=== PATIENT | female | born 1960 | race Caucasian/White ===

== ENCOUNTER 2018-12-12 06:36 | Day surgery (SDC) | payer BC, SELFPAY ==
--- NOTE | 2018-12-11 11:55 | W.PIPPEYE ---
History of Present Illness Chief Complaint: Progressive decreased vision, left eye Narrative: The patient is a 58-year-old lady with history of progressive decreased vision in her left eye. It has declined significantly over the last year. She notes fuzzy foggy and cloudy vision, left eye worse than right. She was noted to have a moderate nuclear and posterior subcapsular cataract in the left eye with significant cortical cataract in the left eye with visual acuity of 20/40 and significant glare disability. The option of cataract surgery was offered to the patient and she felt she was symptomatic enough that she wished to proceed. NOTE: The Chief Complaint, HPI, Past Medical History, Past Surgical History, Family History, Social History, Medications, and complete Ophthalmic Exam with detailed Assessment and Plan have already been documented in the patient's outpatient ophthalmic record and are not covered again in detail here. PFSH Medical History Cortical cataract of left eye (Acute) Nuclear sclerotic cataract of left eye (Acute) Posterior subcapsular age-related cataract of left eye (Acute) BMI 37.0-37.9, adult Depression Endometrial cancer, grade I Hypertension Surgical History section Hysterectomy, Laproscopic (02/20/15) Oophrectomy, Right (~2011) Family History Mother Colon cancer Valvular heart disease Hyperlipidemia Father Diabetes Essential hypertension Sister Guillain-Chicken syndrome Diabetes Maternal Aunt Colon cancer Social History Smoking and Tabacco status: Never Meds Home Medications Medication Instructions Recorded Confirmed Type citalopram 10 mg PO DAILY tab-cap 12/28/15 12/09/18 History echinacea [Echinacea Herb] 760 mg PO DAILY 12/28/15 12/09/18 History multivitamin [Daily Value] 1 ea PO DAILY 12/28/15 12/09/18 History chlorthalidone 25 mg PO DAILY tab-cap 02/27/18 12/09/18 History betamethasone valerate 1 applic TOPICAL BID 12/09/18 12/09/18 History ibuprofen 600 mg PO QID PRN 12/09/18 12/09/18 History naproxen sodium [Aleve] 220 mg PO DAILY PRN 12/09/18 12/09/18 History Allergies Allergy/AdvReac Type Severity Reaction Status Date / Time amoxicillin Allergy RASH Unverified 02/27/18 10:44 sertraline [From Zoloft] AdvReac Mild Verified 12/09/18 13:37 Exam OCULAR EXAM:: Most recent ocular examination is significant for corrected visual acuity of 2024 OD, 20/40 OS. Intraocular pressure is 14 OD, 13 OS. Extraocular motility is normal. Pupils equal, round, and reactive without afferent pupillary defect slit-lamp examination is significant for 1+ nuclear/cortical cataract OD. In the left eye there is a 1+ nuclear and posterior subcapsular cataract with 2-3+ cortical cataract. Funduscopic examination reveals disc cupping of 0.2 OU with normal vessels, macula, peripheral retina and vitreous. BRIGHTNESS ACUITY TESTING (BAT):: Brightness acuity testing of the left eye off is 20/40. Low is 20/50. Medium is 20/60. High is 20/100. Assessment and Plan (1) Posterior subcapsular age-related cataract of left eye: Current visit: No Status: Acute Assessment: Visually significant cataract, left eye. Plan: Cataract extraction with intraocular lens implantation, left eye (2) Nuclear sclerotic cataract of left eye: Current visit: No Status: Acute Assessment: Visually significant cataract, left eye. Plan: Cataract extraction with intraocular lens implantation, left eye (3) Cortical cataract of left eye: Current visit: No Status: Acute Assessment: Visually significant cataract, left eye. Plan: Cataract extraction with intraocular lens implantation, left eye Note: NOTE:: The details of the planned surgery, including the risks, indications,limitations,expectations,outcome and possible complications were explained to the patient. The patient understands the complications including, but not limited to: infection, hemorrhage, posterior dislocation of the lens or nuclear fragments which may require the intervention of a vitreoretinal surgeon, possible loss of the eye, or from anesthetic complications. The patient has been made aware of the option of not having surgery, that vision following surgery may not be equal to that prior to surgery, and that the planned surgery may not achieve the intended results. Following this discussion, which the patient appeared to understand, the patient wishes to proceed with cataract surgery with lens implantation of the affected eye to improve and maximize vision.
--- NOTE | 2018-12-11 12:18 | W.PM.DSUDISC ---
Discharge Plan Discharge Details Attending Provider: Richard Singleton Primary Care Provider: Bib Suresh Home Meds and New Rx's Prescriptions: No Action multivitamin [Daily Value] 1 EACH tablet 1 ea PO DAILY RF: 0 echinacea [Echinacea Herb] 380 MG capsule 760 mg PO DAILY RF: 0 citalopram 20 MG tablet 10 mg PO DAILY RF: 0 chlorthalidone 25 MG tablet 25 mg PO DAILY RF: 0 ibuprofen 600 mg Tablet 600 mg PO QID PRNRF: 0 betamethasone valerate 0.12 % Foam 1 applic TOPICAL BID RF: 0 naproxen sodium [Aleve] 220 mg Capsule 220 mg PO DAILY PRNRF: 0 Discharge Instructions Stand Alone Forms: Post-op Topical Cataract, Abdi Sheehan (DSU) DS: Diagnosis Discharge Diagnosis (1) Status post cataract extraction and insertion of intraocular lens of left eye: Status: Chronic
--- NOTE | 2018-12-11 12:19 | W.PM.OP ---
Date of service: 12/12/18 Time of Service: 09:03 Operative Note PRE-OP DIAGNOSIS: Cataract, left eye, with poor red reflex POST-OP DIAGNOSIS: same PROCEDURE: Cataract extraction using phacoemulsification with intraocular lens implant, left eye, using capsular staining with Vision Blue SURGEON: Richard Singleton ANESTHESIA: MAC (with local sub-tenon's anesthetic injection) COMPLICATIONS: None Patient was transported to: same day Patient's condition: stable Implants: Manish and Manish / [employer] Tecnis [id number] Indications: Progressive decreased vision due to cataract, left eye, with poor red reflex Procedure Description: CATARACT SURGERY OPERATIVE REPORT PREOPERATIVE DIAGNOSIS: 1. Nuclear/cortical/posterior subcapsular cataract, left eye 2. Poor red reflex secondary to #1 POSTOPERATIVE DIAGNOSIS: Same OPERATION: 1. Cataract extraction using phacoemulsification with posterior chamber intraocular lens implant, left eye. 2. Capsular staining with Vision Blue IOL: IOL Juice Bar Team Member/Model: Manish & Manish / YOUNG Tecnis [id number] IOL Power: + 18.0 diopters IOL Serial Number: [id number] Optic Diameter: 6.0 mm Haptic/Overall Diameter: 13.0 mm PHACO INFO: Brooks Busbudurion Vision System with OZil and Active Fluidics Cumulative Dispersed Energy (CDE): 6.12 seconds SURGEON: Richard Singleton MD, YESI ANESTHESIA: Monitored A [facility] Care (MAC), with local sub-tenon's anesthetic infiltration COMPLICATIONS: None SPECIMENS: None INDICATIONS FOR PROCEDURE: The patient is a 58-year-old lady with history of progressive decreased vision in her left eye over the past year. She is noted to have a significant nuclear cortical and posterior subcapsular cataract. The option of cataract surgery was offered to the patient and she felt she was symptomatic enough that she wished to proceed. PROCEDURE: The correct surgical eye was identified and marked as the left eye and the pupil was dilated in the preoperative area using mydriatics and cycloplegics. The dilated pupil size was 7.5 mm. Oral sedation was administered in the form of an Imprimis MKO Melt (midazolam 3mg/ketamine 25mg/ondansetron 2mg). The patient was brought to the operating room where cardiopulmonary monitoring was instituted and surgical time-out was performed, confirming the correct operative eye and IOL power. Topical anesthesia was administered and ophthalmic povidone-iodine 5% was instilled into the conjunctival fornices. Lidocaine gel was applied to the cornea and the evelin-ocular area was prepped with Betadine 10% solution and draped in the usual sterile fashion for intraocular surgery, including an aperture drape. A Tegaderm transparent film dressing was cut in half and used to cover the lashes and lid margins. Care was taken to sequester the lashes and lid margins under the Tegaderm dressing. A lid speculum was placed between the lids of the operative eye and the Jeevan-Criss operating microscope was maneuvered into position. Leroy scissors were then used to make a conjunctival buttonhole approximately 6mm posterior to the limbus in the inferonasal quadrant. Blunt dissection was carried out to expose bare sclera, and a blunt-tipped sub-tenon?s anesthesia cannula was introduced and passed posteriorly along the globe where non-preserved plain lidocaine was injected into posterior sub-Tenon?s space. A sideport knife was used to make a paracentesis port at the 12:00 position. Air was injected into the anterior chamber, followed by Vision Blue, which was painted over the anterior capsule and then irrigated out using BSS. The anterior chamber was filled with Healon GV. A 2.4mm keratome knife was used to create a half-thickness groove at the limbus and then to construct a three-plane near-clear corneal tunnel extending 2.0mm into clear cornea at the 3:00 position. A flap was raised on the anterior capsule and capsulorhexis forceps were used to complete a continuous curvilinear capsulorhexis of 5.5 mm. Balanced salt solution was then used to perform cortical cleaving hydrodissection and nuclear hydrodelineation until the lens could be freely rotated within the capsular bag. The lens nucleus was then disassembled and removed within the capsular bag and iris plane using phacoemulsification. Residual cortical material was removed using the 45-degree angled silicone I/A tip with 0.3mm port. The posterior capsule was carefully polished to remove as much residual lens epithelial cells as safely possible. The capsular bag was then inflated and the anterior chamber deepened with viscoelastic. The lens implant described above was inserted into the capsular bag using the YOUNG [place] Injector. A Kuglen hook was used to dial the IOL into position. Residual viscoelastic was then removed first from posterior to the IOL, then from the anterior chamber using the I/A handpiece. A bimanual I/A technique was used using the Brooks Anctuer handpiece. The underside of the anterior capsule was vacuumed and polished for 360 degrees. The lens implant was noted to center nicely within the capsular bag. The incisions were stromally hydrated, and the anterior chamber was reformed using BSS. Then 0.4cc of moxifloxacin 1.5mg/ml were injected into the capsular bag and anterior chamber. The incisions were checked with a Weck spear and found to be secure. Several drops of ophthalmic povidone-iodine 5% were then applied to the eye followed by two drops of Imprimis combination moxifloxacin/dexamethasone solution. The drapes were removed and a clear plastic protective eye shield was placed over the eye. The patient was then returned to Same Day Surgery in stable condition.
[2018-12-12 07:08] VITALS: BP 134/76; PULSE 69; RESP 15; TEMP 36.9; O2SAT 96
[2018-12-12] MEDS: Tetracaine 0.5% 4 ML BTL OS ×4 (07:14→08:22)
[2018-12-12] MEDS: Tropicam./Phenyleph. (1/2.5%) 5 ML BTL OS ×3 (07:14→07:24)
[2018-12-12] MEDS: Lidocaine 2% Jelly 6 ML SYR (08:22)
[2018-12-12] MEDS: Povidone-Iodine Ophth 30 ML BTL (08:22)
[2018-12-12] MEDS: Lidocaine 1% Pres-Free 5 ML VIAL (08:28)
[2018-12-12] MEDS: Balanced Salt Soln.-PLUS 500 ML BAG (08:28)
[2018-12-12] MEDS: Trypan Blue 0.06% 0.5 ML SYR (08:30)
[2018-12-12 09:25] VITALS: BP 112/59; PULSE 64; RESP 16; TEMP 36.8; O2SAT 93
== END 2018-12-12 09:50 | disposition home or self-care (01) ==
PROVIDERS: PCP Internal Medicine; Visit Provider Ophthalmology
PROC: (CPT 66982; principal; 2018-12-12 08:30)
DX: H25.812 Combined forms of age-related cataract, left eye (principal); H35.89 Other specified retinal disorders; I10 Essential (primary) hypertension
CPT/HCPCS: 66982; V2632

== ENCOUNTER 2019-02-09 14:19 | Outpatient (REF) | payer BC, SELFPAY ==
[2019-02-09 20:50] LABS: Abs Immature Grans 0.01 k/cumm (0.0-0.09); Absolute Basophil Count 0.03 k/cumm (0.0-0.2); Absolute Lymphocyte Count 1.68 k/cumm (1.2-3.4); Absolute Monocyte Count 0.37 k/cumm (0.11-0.7); Absolute Neutrophil Count 4.27 k/cumm (1.2-6.7); Basophils % 0.5; Eosinophils % 1.5; HCT 41.4 % (36.0-46.0); HGB 13.9 g/dL (12.0-15.5); Immature Grans % 0.2; Mean Corp. HGB Concentration 33.6 g/dL (32.0-36.0); Mean Corpuscular Hemoglobin 31.7 pg (27.0-33.0); Mean Corpuscular Volume 94.3 fL (80-95); Mean Platelet Volume 11.1 fL (8.0-11.0); Monocytes % 5.7; Neutrophils % 66.1; Platelet Count 238 x1000/uL (130-400); RBC 4.39 m/cumm (4.00-5.20); RBC Distribution Width 12.3 % (11.7-14.6); White Blood Cell Count 6.46 k/cumm (4.4-10.8)
[2019-02-09 21:41] LABS: ALT 31 U/L (12-78); AST 19 U/L (15-37); Albumin 3.9 g/dL (3.4-5.0); Alkaline Phosphatase 103 U/L (46-116); Anion Gap 9.1 mmol/L (3-11); BUN 22 mg/dL (7-18); Bilirubin, Total 0.6 mg/dL (0.2-1.0); CO2 30.9 mmol/L (21.0-32.0); CREATININE 0.94 mg/dL (0.55-1.02); Calcium 9.5 mg/dL (8.5-10.1); Chloride 99 mmol/L (98-107); Glucose 211 mg/dL (70-100); Potassium 3.4 mmol/L (3.5-5.1); Sodium 139 mmol/L (136-145); Total Protein 7.7 g/dL (6.4-8.2)
== END 2019-02-09 14:39 ==
LOC: NCHCN 14:19
PROVIDERS: PCP Internal Medicine; Visit Provider Internal Medicine
DX: R10.32 Left lower quadrant pain (principal)
CPT/HCPCS: 80053; 85025

== ENCOUNTER 2019-03-17 00:16 | Outpatient (CLI) | payer BC, SELFPAY ==
--- NOTE | 2019-03-17 11:53 | DI.MAMMO_ITS ---
SYMPTOMS/DIAGNOSIS: SCREENING, Z12.31 MAMMOGRAM: Mammograms were interpreted according to the usual protocol including computer analysis with CAD system, tomosynthesis and C view imaging. Comparison is made with exams from 2012 through 2018. The breasts are composed of scattered fibroglandular densities. There are no suspicious masses or suspicious microcalcifications. There has been no significant change. IMPRESSION: Category I, negative mammogram. Yearly screening mammography is recommended. Breast density B. MQSA ASSESSMENT OF FINDINGS: Negative. Category 1. Patient will receive a letter notifying them of these results. BI-RADS category B. There are scattered areas of fibroglandular density.
== END 2019-03-17 00:36 ==
PROVIDERS: PCP Internal Medicine; Visit Provider Nurse Practitioner Family
DX: Z12.31 Encounter for screening mammogram for malignant neoplasm of breast (principal)
CPT/HCPCS: 77063; 77067

== ENCOUNTER 2019-03-17 10:09 | Outpatient (REF) | payer BC, SELFPAY ==
[2019-03-19 09:48] LABS: Hepatitis C Ab w Rflx HCV PCR Negative (NEGAT)
== END 2019-03-17 10:29 ==
LOC: NCHCN 10:09
PROVIDERS: PCP Internal Medicine; Visit Provider Specialist/Technologist Athletic Trainer
DX: Z11.59 Encounter for screening for other viral diseases (principal)
CPT/HCPCS: 86803

== ENCOUNTER 2019-06-03 16:09 | Outpatient (REF) | payer BC, SELFPAY | END 2019-06-03 16:29 | LOC: NCHCN 16:09 | PROVIDERS: PCP Internal Medicine; Visit Provider Internal Medicine | DX: E87.6 Hypokalemia (principal) | CPT/HCPCS: 84132 ==

== ENCOUNTER 2019-06-22 11:46 | Outpatient (REF) | payer BC, SELFPAY ==
[2019-06-22 16:24] LABS: Hemoglobin A1C 6.1 % (4.5-6.2)
== END 2019-06-22 12:06 ==
LOC: NCHCN 11:46
PROVIDERS: PCP Internal Medicine; Visit Provider Internal Medicine
DX: R73.01 Impaired fasting glucose (principal)
CPT/HCPCS: 83036

== ENCOUNTER 2020-04-25 00:47 | Outpatient (CLI) | payer BC, SELFPAY ==
--- NOTE | 2020-04-25 | DI.MAMMO_ITS ---
EXAM: MG MAMMO SCREENING CLINICAL HISTORY: SCREENING Z12.39 TECHNIQUE: Bilateral full field digital CC and MLO mammographic images were obtained with 3D tomosyn thesis and utilizing computer aided detection (CAD). COMPARISON: Available for comparison. FINDINGS: Masses/Architectural Distortion: None seen. Microcalcifications: No suspicious pleomorphic-type are seen. Skin Thickening/Nipple Retraction: None. IMPRESSION: 1. No significant interval change with no specific features of malignancy noted. 2. Unless there is more urgent need, screening mammography is recommended, as per [place] [employer] guidelines. BI-RADS Category 1 - Negative Breast Density - Category B - Scattered areas of fibroglandular density A negative radiographic report should not delay biopsy if a dominant or clinically suspicious mass is present. Up to ten percent of cancers are not identified on mammography. A negative report may reinforce clinical impression. Adenosis and dense breasts may obscure an underlying neoplasm. False positive reports average 6 to 10%. Patient will receive a letter notifying them of these results.
== END 2020-04-25 01:07 ==
PROVIDERS: PCP Internal Medicine; Visit Provider Internal Medicine
DX: Z12.31 Encounter for screening mammogram for malignant neoplasm of breast (principal)
CPT/HCPCS: 77063; 77067

== ENCOUNTER 2020-07-19 14:56 | Outpatient (REF) | payer BC, SELFPAY ==
[2020-07-19 21:52] LABS: Hemoglobin A1C 6.4 % (<5.7)
== END 2020-07-19 15:16 ==
LOC: NCHCN 14:56
PROVIDERS: PCP Internal Medicine; Visit Provider Internal Medicine
DX: R73.03 Prediabetes (principal)
CPT/HCPCS: 83036

== ENCOUNTER 2020-08-03 18:35 | Outpatient (REF) | payer BC, SELFPAY ==
[2020-08-06 19:19] LABS: Patient Race White; SARS-CoV-2 RNA Undetected (Undetected); SARS-CoV-2 Specimen Source Nasal
== END 2020-08-03 18:55 ==
LOC: NCHCN 18:35
PROVIDERS: PCP Internal Medicine; Visit Provider Nurse Practitioner Family
DX: R06.02 Shortness of breath (principal)
CPT/HCPCS: U0003

== ENCOUNTER 2020-08-16 01:27 | Outpatient (CLI) | payer BC, SELFPAY ==
[2020-08-16 15:30] LABS: ALT 23 U/L (14-59); AST 17 U/L (15-37); Albumin 3.6 g/dL (3.4-5.0); Alkaline Phosphatase 98 U/L (46-116); Anion Gap 10.1 mmol/L (3-11); BUN 29 mg/dL (7-18); Bilirubin, Total 0.5 mg/dL (0.2-1.0); CO2 28.9 mmol/L (21.0-32.0); Calcium 9.6 mg/dL (8.5-10.1); Chloride 100 mmol/L (98-107); Glucose 110 mg/dL (74-106); Potassium 3.9 mmol/L (3.5-5.1); Sodium 139 mmol/L (136-145); Total Protein 7.5 g/dL (6.4-8.2)
== END 2020-08-16 01:47 ==
PROVIDERS: PCP Internal Medicine; Visit Provider Internal Medicine
DX: M19.90 Unspecified osteoarthritis, unspecified site (principal)
CPT/HCPCS: 36415; 80053

== ENCOUNTER 2020-09-16 01:13 | Outpatient (CLI) | payer BC, SELFPAY ==
[2020-09-16 17:27] LABS: ALT 23 U/L (14-59); AST 17 U/L (15-37); Albumin 3.8 g/dL (3.4-5.0); Alkaline Phosphatase 99 U/L (46-116); Anion Gap 8.7 mmol/L (3-11); BUN 28 mg/dL (7-18); Bilirubin, Total 0.4 mg/dL (0.2-1.0); CO2 32.3 mmol/L (21.0-32.0); CREATININE 0.98 mg/dL (0.55-1.02); Calcium 9.4 mg/dL (8.5-10.1); Chloride 99 mmol/L (98-107); Estimated GFR 58.09 (mL/min/1.73m2); Glucose 100 mg/dL (74-106); Potassium 4.1 mmol/L (3.5-5.1); Sodium 140 mmol/L (136-145); Total Protein 7.8 g/dL (6.4-8.2)
== END 2020-09-16 01:33 ==
PROVIDERS: PCP Internal Medicine; Visit Provider Internal Medicine
DX: M19.09 Primary osteoarthritis, other specified site (principal)
CPT/HCPCS: 36415; 80053

== ENCOUNTER 2021-06-28 12:56 | Outpatient (CLI) | payer BC, SELFPAY ==
--- NOTE | 2021-06-28 | DI.RAD_ITS ---
Exam(s) XR KNEE RT 3V AP,LAT,GLENNA EXAM: XR KNEE RT 3V AP,LAT,GLENNA CLINICAL HISTORY: ACUTE RT KNEE PAIN, M25.561; INFLAMMATORY ARTHRITIS, M13.80. TECHNIQUE: 2D digital imaging was performed. COMPARISON: No exams were available for comparison FINDINGS: There is no evidence of fracture although there does appear to be a small joint effusion. No obvious degenerative changes in the medial lateral compartments. Mild degenerative changes in the patellofe moral compartment. No osseous lesions. Bone density is age-appropriate. IMPRESSION: No fractures but there is a small joint effusion. This may signify an internal derangement. DATA REPOSITORY: RADIATION DOSE DELIVERED:
== END 2021-06-28 13:16 ==
PROVIDERS: PCP Internal Medicine; Visit Provider Nurse Practitioner Family
DX: M25.561 Pain in right knee (principal); M13.80 Other specified arthritis, unspecified site; M25.461 Effusion, right knee
CPT/HCPCS: 73562

== ENCOUNTER 2021-08-01 14:49 | Outpatient (REF) | payer BC, SELFPAY ==
[2021-08-01 21:04] LABS: Calculated LDL 90 mg/dL (<100); Cholesterol 168 mg/dL (<200); HDL Cholesterol 48 mg/dL (40-60); Triglyceride 154 mg/dL (<150)
== END 2021-08-01 14:50 | disposition home or self-care (01) ==
LOC: NCHCN 14:49
PROVIDERS: PCP Internal Medicine; Visit Provider Internal Medicine
DX: E66.9 Obesity, unspecified (principal); F41.9 Anxiety disorder, unspecified; R73.03 Prediabetes; F32.9 Major depressive disorder, single episode, unspecified
CPT/HCPCS: 80061

== ENCOUNTER 2021-08-14 00:51 | Outpatient (CLI) | payer BC, SELFPAY ==
--- NOTE | 2021-08-14 07:30 | DI.MAMMO_ITS ---
Exam(s) MAMMO SCREENING EXAM: MAMMO SCREENING CLINICAL HISTORY: screening,Z12.39 TECHNIQUE: Mammograms were interpreted according to the usual protocol including computer analysis w [facility] CAD system, tomosynthesis and C-view imaging. COMPARISON: FINDINGS: Breasts are density with fairly symmetrical distribution of fibroglandular tissue. No dominant mass or clumped microcalcification is identified in either breast. The current examination is compared wi th previous examinations including April 2020 and there has been no gross interval change in appearanc e comparison with prior studies. IMPRESSION: No specific evidence of malignancy at this time. Routine screening examinations are suggested at yea rly intervals in this age group according to the ACS ACR guidelines. BI-RADS Category 1 - Negative Breast Density - Category B - Scattered areas of fibroglandular density
== END 2021-08-14 01:11 ==
PROVIDERS: PCP Internal Medicine; Visit Provider Nurse Practitioner Family
DX: Z12.31 Encounter for screening mammogram for malignant neoplasm of breast (principal)
CPT/HCPCS: 77063; 77067

== ENCOUNTER 2021-12-11 03:57 | Outpatient (CLI) | payer OTHER, SELFPAY ==
[2021-12-11 14:21] LABS: Abs Immature Grans 0.01 10^3/uL (0.0-0.06); Absolute Basophil Count 0.05 10^3/uL (0.0-0.2); Absolute Eosinophil Count 0.23 10^3/uL (0.0-0.7); Absolute Lymphocyte Count 1.51 10^3/uL (1.2-3.4); Absolute Monocyte Count 0.84 10^3/uL (0.1-0.8); Absolute Neutrophil Count 3.54 10^3/uL (1.2-6.7); Basophils % 0.8; Eosinophils % 3.7; HCT 38.6 % (36.0-46.0); HGB 12.9 g/dL (11.2-15.7); Immature Grans % 0.2; Lymphocytes % 24.4; MCH 33.4 pg (27.0-33.0); MCHC 33.4 % (32.0-36.0); MPV 9.6 fL (8.0-11.0); Monocytes % 13.6; Neutrophils % 57.3; Nucleated RBC 0 %; Platelet Count 232 10^3/uL (130-400); RBC 3.86 10^6/uL (3.93-5.22); RDW 12.8 % (11.7-14.6); WBC 6.18 10^3/uL (4.4-10.8)
[2021-12-11 15:38] LABS: ALT 46 U/L (14-59); AST 18 U/L (15-37); Albumin 3.9 g/dL (3.4-5.0); Alkaline Phosphatase 113 U/L (46-116); Anion Gap 10.1 mmol/L (3-11); BUN 22 mg/dL (7-18); Bilirubin, Total 0.8 mg/dL (0.2-1.0); CO2 29.9 mmol/L (21.0-32.0); CREATININE 0.9 mg/dL (0.55-1.02); Calcium 8.9 mg/dL (8.5-10.1); Chloride 102 mmol/L (98-107); Glucose 158 mg/dL (74-106); Potassium 3.6 mmol/L (3.5-5.1); Sodium 142 mmol/L (136-145); Total Protein 7.4 g/dL (6.4-8.2)
== END 2021-12-11 03:58 | disposition home or self-care (01) ==
LOC: LBO 03:57
PROVIDERS: Internal Medicine Rheumatology; PCP Internal Medicine; Visit Provider Internal Medicine
DX: L40.59 Other psoriatic arthropathy (principal)
CPT/HCPCS: 36415; 80053; 85025

== ENCOUNTER 2022-01-29 14:45 | Outpatient (REF) | payer OTHER, SELFPAY ==
[2022-01-29 20:49] LABS: Abs Immature Grans 0.01 10^3/uL (0.0-0.06); Absolute Basophil Count 0.07 10^3/uL (0.0-0.2); Absolute Eosinophil Count 0.17 10^3/uL (0.0-0.7); Absolute Lymphocyte Count 1.97 10^3/uL (1.2-3.4); Absolute Monocyte Count 0.99 10^3/uL (0.1-0.8); Absolute Neutrophil Count 3.86 10^3/uL (1.2-6.7); Eosinophils % 2.4; HCT 39.7 % (36.0-46.0); Immature Grans % 0.1; Lymphocytes % 27.9; MCHC 32.7 % (32.0-36.0); MCV 100.8 fL (80-95); MPV 10.6 fL (8.0-11.0); Neutrophils % 54.6; Nucleated RBC 0 %; Platelet Count 253 10^3/uL (130-400); RBC 3.94 10^6/uL (3.93-5.22); RDW 12.7 % (11.7-14.6); RDW-SD 46.3 fL; WBC 7.07 10^3/uL (4.4-10.8)
[2022-01-29 21:01] LABS: ALT 50 U/L (14-59); AST 24 U/L (15-37); Albumin 4.2 g/dL (3.4-5.0); Alkaline Phosphatase 86 U/L (46-116); Anion Gap 6.9 mmol/L (3-11); BUN 23 mg/dL (7-18); Bilirubin, Total 0.8 mg/dL (0.2-1.0); CO2 31.1 mmol/L (21.0-32.0); CREATININE 0.9 mg/dL (0.55-1.02); Calcium 9.4 mg/dL (8.5-10.1); Chloride 101 mmol/L (98-107); Glucose 82 mg/dL (74-106); Lipase 125 U/L (73-393); Potassium 4.2 mmol/L (3.5-5.1); Sodium 139 mmol/L (136-145); Total Protein 7.6 g/dL (6.4-8.2)
[2022-01-29 21:04] LABS: Hemoglobin A1C 6.5 % (<5.7)
== END 2022-01-29 14:46 | disposition home or self-care (01) ==
LOC: NCHCN 14:45
PROVIDERS: PCP Internal Medicine; Visit Provider Family Medicine
DX: R10.9 Unspecified abdominal pain (principal); Z00.00 Encounter for general adult medical examination without abnormal findings
CPT/HCPCS: 80053; 83690; 83036; 85025

== ENCOUNTER 2022-08-21 03:37 | Outpatient (CLI) | payer OTHER, SELFPAY ==
[2022-08-21 12:46] LABS: Abs Immature Grans 0.01 10^3/uL (0.0-0.06); Absolute Basophil Count 0.05 10^3/uL (0.0-0.2); Absolute Lymphocyte Count 1.77 10^3/uL (1.2-3.4); Absolute Monocyte Count 0.49 10^3/uL (0.1-0.8); Absolute Neutrophil Count 3.93 10^3/uL (1.2-6.7); Basophils % 0.8; Eosinophils % 1.6; HCT 39.2 % (36.0-46.0); HGB 13.3 g/dL (11.2-15.7); Immature Grans % 0.2; Lymphocytes % 27.9; MCH 32.8 pg (27.0-33.0); MCHC 33.9 % (32.0-36.0); MCV 97 fL (80-95); MPV 10.3 fL (8.0-11.0); Monocytes % 7.7; Neutrophils % 61.8; Platelet Count 230 10^3/uL (130-400); RBC 4.05 10^6/uL (3.93-5.22); RDW 12.3 % (11.7-14.6); RDW-SD 43.7 fL; WBC 6.35 10^3/uL (4.4-10.8)
[2022-08-21 13:28] LABS: ALT 39 U/L (14-59); AST 22 U/L (15-37); Albumin 3.8 g/dL (3.4-5.0); Alkaline Phosphatase 94 U/L (46-116); Anion Gap 5.4 mmol/L (3-11); BUN 20 mg/dL (7-18); Bilirubin, Total 0.8 mg/dL (0.2-1.0); CO2 31.6 mmol/L (21.0-32.0); CREATININE 0.9 mg/dL (0.55-1.02); Calcium 9.3 mg/dL (8.5-10.1); Chloride 103 mmol/L (98-107); Estimated GFR 72.73 (mL/min/1.73m2); Glucose 158 mg/dL (74-106); Potassium 4.2 mmol/L (3.5-5.1); Sodium 140 mmol/L (136-145); Total Protein 7.9 g/dL (6.4-8.2)
== END 2022-08-21 03:38 | disposition home or self-care (01) ==
PROVIDERS: PCP Internal Medicine; Visit Provider Physician Assistant Medical
DX: L40.50 Arthropathic psoriasis, unspecified (principal); Z79.899 Other long term (current) drug therapy
CPT/HCPCS: 36415; 80053; 85025

== ENCOUNTER 2022-11-08 07:42 | Day surgery (SDC) | payer OTHER, SELFPAY ==
--- NOTE | 2022-11-07 20:52 | W.PM.DSUDISC ---
Date of service: 11/08/22 Time of Service: 09:24 Discharge Plan Disposition Patient Disposition: Home Condition: Good Discharge Details Reason For Visit: screening colonoscopy Attending Provider: Roberto Redd Primary Care Provider: Jadiel Dick Home Meds and New Rx's Prescriptions: Continued atorvastatin 20 mg tablet 20 mg PO QHS citalopram 20 MG tablet 10 mg PO DAILY famotidine 40 mg tablet 40 mg PO DAILY Label Comments: Per PCP she has stopped taking 3-6months ago, trial methotrexate sodium 2.5 mg tablet 20 mg PO QWEEK Enbrel 50 mg/mL (1 mL) syringe 50 mg subcut QWEEK ketoconazole 2 % cream 1 applic topical DAILY folic acid 1 mg tablet 1 mg PO DAILY ibuprofen 600 mg Tablet 600 mg PO QID PRN betamethasone valerate 0.12 % Foam 1 applic TOPICAL BID naproxen sodium [Aleve] 220 mg Capsule 220 mg PO DAILY PRN Discontinued bisacodyl [Dulcolax (bisacodyl)] 5 mg tablet,delayed release (DR/EC) 5 mg PO ONCE Qty: 4 0RF Rx Instructions: Take according to provider's instructions for colonoscopy prep. polyethylene glycol 3350 17 gram/dose powder 17 g PO ONCE Qty: 238 0RF Rx Instructions: To be taken as directed by prescriber's office for colonoscopy prep. bisacodyl [Dulcolax (bisacodyl)] 5 mg tablet,delayed release (DR/EC) 5 mg PO ONCE Qty: 4 0RF Rx Instructions: Take according to provider's instructions for colonoscopy prep. polyethylene glycol 3350 17 gram/dose powder 17 g PO ONCE Qty: 238 0RF Rx Instructions: To be taken as directed by prescriber's office for colonoscopy prep. Discharge Instructions Instructions: Colorectal Polyps (GEN) Additional Instructions: 1. If tolerated, consume a soft, low fiber diet for 1-2 days. 2[address] Do not drive, drink alcohol, operate machinery, make critical decisions, or do activities that require coordination or balance for 24 hours. 3. Because air was put into your colon during the procedure, expelling air from your rectum (passing gas or farting) is normal. 4. You may not have a bowel movement for 1-3 days because of the colonoscopy prep. This is normal. 5. Go directly to the emergency room if you notice any of the following: Develop chills (warm to touch), or if you have a thermometer and your temperature is above 101 Difficulty breathing or difficultly swallowing Persistent vomiting Severe abdominal pain, other than gas cramps Severe chest pain Black, tarry stools Any bleeding ? exceeding one tablespoon 6. Call your physician if the site where your intravenous was started becomes red, swollen, painful, and warm to touch. 7. Your physician has reviewed your pre-procedure medications. Please continue to take those medications as previously ordered. You will be given specific information/education regarding any changes to your medications before leaving. Activity:: Activity as Tolerated Diet:: As Tolerated Discharge Orders Discharge Orders: Discharge Order (Routine); Ordered 11/07/22 Ordered By: Roberto Redd DS: Diagnosis Discharge Diagnosis (1) Screening for colon cancer: Status: Acute Asessment and Plan: Quality of your colonoscopy prep was excellent, and you did fantastic during the procedure. We did identify a single polyp around 40 cm from your anus. This was removed completely. I will contact you when I have the results of the pathology report.
--- NOTE | 2022-11-07 20:54 | W.COLOREPORT ---
Date of service: 11/08/22 Time of Service: 09: Colonoscopy Report Date of procedure: 11/08/22 Pre-op diagnosis general: screening colonoscopy Post-op diagnosis procedure note: other (Colon polyp) Procedure: Colonoscopy with polypectomy Surgeon: Roberto Redd Anesthesia Type: General:No Airway Estimated blood loss (mL): 10 Pathology: other (Colon polyp at 40 cm) Complications: None Disposition: same day Indications: Sara is a 62 year old woman with a firt degree reative with colon cancer who is here for her next screening colonoscopy as part of routine health maintenance Prep: Miralax/Dulcolax Procedure Start Time: 09:04 Procedure End Time: 09:19 Retraction Time: 12 Findings: Single colon polyp around 40 cm from anus Procedure Description: After the induction of monitored anesthetic care, and with the patient in left lateral decubitus position, I began by performing an external anorectal exam.? Perineum and skin were normal, as was the anal verge.? There was no evidence of external hemorrhoids.? Next, I performed a digital rectal exam.? I did not appreciate any abnormal findings.? Next, I advanced a colonoscope into the rectal vault.? I performed retroflexion.? This was normal.? Using insufflation, I then advanced the colonoscope beyond the rectal folds and into the sigmoid colon before advancing towards the cecum.? The quality of the prep was excellent.? The scope was noted to be in the cecum by identification of the ileocecal valve and appendiceal orifice.? I then began withdrawing the colonoscope using repeated irrigation as necessary for full evaluation of the colonic mucosa. Around 40 cm from the anal verge I identified a 0.25 centimeters polyp. ?It appeared sessile in character. ?I was able to remove this with a cold forcep polypectomy. ?I examined the site, and there was minimal bleeding. ?Once this was completed, I continued to withdraw the scope and examine the remainder of the colonic mucosa.?Once the scope was withdrawn to the level of the rectum, great care was taken to examine portions of the rectal folds.? Finally, the scope was withdrawn and the patient was brought to the same-day surgery recovery unit as the anesthetic wore off. ?The findings and instructions were shared with the patient prior to discharge.
[2022-11-08 08:10] VITALS: BP 141/77; PULSE 88; RESP 16; TEMP 36.2; O2SAT 95
[2022-11-08] MEDS: Lactated Ringers 1,000 ML 80 ML IV (08:25)
--- NOTE | 2022-11-08 08:30 | ANES.PREOP_ITS ---
General Info Date of Service Date Performed: 11/08/22 Height: 5 ft 7 in Weight: 104.043 kg Body Mass Index (BMI): 35.9 Surgical Procedure: Operation Date: 11/08/22 09:05 Proposed Procedure Side Surgeon wander Redd MD Meds Allergies and Home Medications Allergies Allergy/AdvReac Type Severity Reaction Status Date / Time amoxicillin Allergy RASH Verified 11/08/22 08:08 sertraline [From Zoloft] AdvReac Mild Verified 11/08/22 08:08 Home Medication Medication Instructions Recorded citalopram 20 mg tablet 10 mg PO DAILY 12/28/15 betamethasone valerate 0.12 % 1 applic topical BID 12/09/18 topical foam ibuprofen 600 mg tablet 600 mg PO QID PRN 12/09/18 naproxen sodium 220 mg capsule 220 mg PO DAILY PRN 12/09/18 (Aleve) atorvastatin 20 mg tablet 20 mg PO QHS 06/27/21 etanercept 50 mg/mL (1 mL) 50 mg subcut QWEEK 06/21/22 subcutaneous syringe (Enbrel) famotidine 40 mg tablet 40 mg PO DAILY 06/21/22 folic acid 1 mg tablet 1 mg PO DAILY 06/21/22 ketoconazole 2 % topical cream 1 applic topical DAILY 06/21/22 methotrexate sodium 2.5 mg tablet 20 mg PO QWEEK 06/21/22 Current Visit Medications: Current Medications Generic Name Dose Route Start Last Admin Trade Name Freq PRN Reason Stop Dose Admin Hyoscyamine Sulfate 0.125 mg 11/07/22 20:56 Hyoscyamine 0.125 Mg Sl/Oral/Chew SL DIRECTED PRN Ringer's Solution 1,000 mls @ 80 mls/hr 11/08/22 06:00 IV 12/07/22 23:59 [facility]ION [facility] IV Miscellaneous Supplies 1 each 11/08/22 06:00 Iv Access IV 12/07/22 23:59 DIRECTED WALKER Ondansetron HCl 4 mg 11/07/22 20:56 Ondansetron 4 Mg/2 Ml Vial IVP Q4H PRN PRN Nausea / Vomiting Sodium Chloride 0 ml 11/08/22 06:00 Normal Saline Flush 10 Ml Syr IV 12/07/22 23:59 PRN PRN Sodium Chloride 0 ml 11/08/22 06:00 Normal Saline 10 Ml Vial IJ 12/07/22 23:59 DIRECTED PRN Sterile Water 0 ml 11/08/22 06:00 Water,Injection,Sterile 10 Ml Vial IJ 12/07/22 23:59 DIRECTED PRN PFSH Active Problems Active Problems: Problem Status Onset Code Status post cataract extraction and insertion of intraocular lens of left eye 12/12/18 Z98.42, Z96.1 Hypertension 10/04/14 I10 Family history of colon cancer 02/27/18 Z80.0 Endometrial cancer 12/30/14 C54.1 Depression 10/04/14 F32.9 Abdominal pain R10.9 Prediabetes R73.03 Screening for colon cancer Z12.11 Medical History Medical History BMI 37.0-37.9, adult Cortical cataract of left eye Inflammatory arthritis Nuclear sclerotic cataract of left eye Posterior subcapsular age-related cataract of left eye Surgical History Surgical History section History of carpal tunnel surgery of right wrist Hysterectomy, Laproscopic (02/20/15) RATLH/BSO/PLND for Stage 1A Grade1 Endometrial CA Oophrectomy, Right (~2011) with para-tubal cystectomy Dr Rodarte Tobacco Smoking/Tobacco Use Status: Never Alcohol Alcohol Intake: current Alcohol intake frequency: a few times a month Alcohol type: beer Substance Use Substance use: Never Substance use type: does not use Prental History History 3 Para 2 Hx # Term Pregnancies Multiple births Hx # Pregnancies Ectopic pregnancies AB induced Hx Number of Living Children AB spontaneous Vital Signs and Lab Results Vital Signs Most Recent Vital Signs in EMR: Most Recent Vital Signs Temp Pulse Resp BP Pulse Ox 36.2 C L 88 16 141/77 H 95 11/08/22 08:10 11/08/22 08:10 11/08/22 08:10 11/08/22 08:10 11/08/22 08:10 Lab Results Blood Type / Crossmatch: No Data to Display Complete Blood Count: No Data to Display Complete Metabolic Panel: No Data to Display Liver Function Panel: No Data to Display Coagulation Panel: No Data to Display Cardiac Panel: No Data to Display Arterial Blood Gas: No Data to Display Venous Blood Gas: No Data to Display Pancreas Panel: No Data to Display Thyroid Panel: No Data to Display Infectious Disease: No Data to Display Blood Cultures: No Data to Display Toxicology Panel: No Data to Display Anesthesia Assessment and Plan Anesthesia History Personal History: No History of Anesthesia Complications Family History: No Family History of Anesthesia Complications Exercise Tolerance Exercise Tolerance: Metabolic Equivalents>4 Pertinent Negatives Pertinent Negatives: No Symptoms of GERD, No Major Cardiovascular Symptoms or Complaints and No Major Pulmonary Symptoms or Complaints Cardiac & Pulmonary Exam Cardiac Exam: Normal S1/S2 Heart Sounds Pulmonary Exam: Clear Bilateral Breath Sounds Implantable Cardiac Device Does patient have a Pacemaker or an ICD?: No Airway Exam Known Difficult Airway: No Mallampati Class: 2 Mouth Opening: Normal (> 3cm) Thyromental Distance: Greater than 3 cm Neck Range of Motion: Full ROM Neck Circumference: Thick Teeth Condition: Normal Dentition ASA Classification ASA Score: ASA 2 Emergency Case?: No NPO Status NPO Status: NPO Clears >2 hours, Solids >8 hours Anesthesia Plan Resuscitation Status: Full Code Anesthesia Technique: General Anesthesia Airway Planned: Natural Airway Monitors Used: Standard Monitors
[2022-11-08 08:34] VITALS: BMI 35.9
--- NOTE | 2022-11-08 08:35 | W.ANESPRE ---
General Info Date of Service Date Performed: 11/08/22 Height: 5 ft 7 in Weight: 104.043 kg Body Mass Index (BMI): 35.9 Surgical Procedure: Operation Date: 11/08/22 09:05 Proposed Procedure Side Surgeon wander Redd MD Meds Allergies and Home Medications Allergies Allergy/AdvReac Type Severity Reaction Status Date / Time amoxicillin Allergy RASH Verified 11/08/22 08:08 sertraline [From Zoloft] AdvReac Mild Verified 11/08/22 08:08 Home Medication Medication Instructions Recorded citalopram 20 mg tablet 10 mg PO DAILY 12/28/15 betamethasone valerate 0.12 % 1 applic topical BID 12/09/18 topical foam ibuprofen 600 mg tablet 600 mg PO QID PRN 12/09/18 naproxen sodium 220 mg capsule 220 mg PO DAILY PRN 12/09/18 (Aleve) atorvastatin 20 mg tablet 20 mg PO QHS 06/27/21 etanercept 50 mg/mL (1 mL) 50 mg subcut QWEEK 06/21/22 subcutaneous syringe (Enbrel) famotidine 40 mg tablet 40 mg PO DAILY 06/21/22 folic acid 1 mg tablet 1 mg PO DAILY 06/21/22 ketoconazole 2 % topical cream 1 applic topical DAILY 06/21/22 methotrexate sodium 2.5 mg tablet 20 mg PO QWEEK 06/21/22 Current Visit Medications: Current Medications Generic Name Dose Route Start Last Admin Trade Name Freq PRN Reason Stop Dose Admin Hyoscyamine Sulfate 0.125 mg 11/07/22 20:56 Hyoscyamine 0.125 Mg Sl/Oral/Chew SL DIRECTED PRN Ringer's Solution 1,000 mls @ 80 mls/hr 11/08/22 06:00 11/08/22 08:25 IV 12/07/22 23:59 80 mls/hr INFUSION WALKER Administration IV Miscellaneous Supplies 1 each 11/08/22 06:00 Iv Access IV 12/07/22 23:59 DIRECTED WALKER Ondansetron HCl 4 mg 11/07/22 20:56 Ondansetron 4 Mg/2 Ml Vial IVP Q4H PRN PRN Nausea / Vomiting Sodium Chloride 0 ml 11/08/22 06:00 Normal Saline Flush 10 Ml Syr IV 12/07/22 23:59 PRN PRN Sodium Chloride 0 ml 11/08/22 06:00 Normal Saline 10 Ml Vial IJ 12/07/22 23:59 DIRECTED PRN Sterile Water 0 ml 11/08/22 06:00 Water,Injection,Sterile 10 Ml Vial IJ 12/07/22 23:59 DIRECTED PRN PFSH Active Problems Active Problems: Problem Status Onset Code Status post cataract extraction and insertion of intraocular lens of left eye 12/12/18 Z98.42, Z96.1 Hypertension 10/04/14 I10 Family history of colon cancer 02/27/18 Z80.0 Endometrial cancer 12/30/14 C54.1 Depression 10/04/14 F32.9 Abdominal pain R10.9 Prediabetes R73.03 Screening for colon cancer Z12.11 Medical History Medical History BMI 37.0-37.9, adult Cortical cataract of left eye Inflammatory arthritis Nuclear sclerotic cataract of left eye Posterior subcapsular age-related cataract of left eye Surgical History Surgical History section History of carpal tunnel surgery of right wrist Hysterectomy, Laproscopic (02/20/15) RATLH/BSO/PLND for Stage 1A Grade1 Endometrial CA Oophrectomy, Right (~2011) with para-tubal cystectomy Dr Rodarte Tobacco Smoking/Tobacco Use Status: Never Alcohol Alcohol Intake: current Alcohol intake frequency: a few times a month Alcohol type: beer Substance Use Substance use: Never Substance use type: does not use Prental History History 3 Para 2 Hx # Term Pregnancies Multiple births Hx # Pregnancies Ectopic pregnancies AB induced Hx Number of Living Children AB spontaneous Vital Signs and Lab Results Vital Signs Most Recent Vital Signs in EMR: Most Recent Vital Signs Temp Pulse Resp BP Pulse Ox 36.2 C L 88 16 141/77 H 95 11/08/22 08:10 11/08/22 08:10 11/08/22 08:10 11/08/22 08:10 11/08/22 08:10 Lab Results Blood Type / Crossmatch: No Data to Display Complete Blood Count: No Data to Display Complete Metabolic Panel: No Data to Display Liver Function Panel: No Data to Display Coagulation Panel: No Data to Display Cardiac Panel: No Data to Display Arterial Blood Gas: No Data to Display Venous Blood Gas: No Data to Display Pancreas Panel: No Data to Display Thyroid Panel: No Data to Display Infectious Disease: No Data to Display Blood Cultures: No Data to Display Toxicology Panel: No Data to Display Anesthesia Assessment and Plan Anesthesia History Personal History: No History of Anesthesia Complications Family History: No Family History of Anesthesia Complications Exercise Tolerance Exercise Tolerance: Metabolic Equivalents>4 Pertinent Negatives Pertinent Negatives: No Symptoms of GERD Cardiac & Pulmonary Exam Cardiac Exam: Normal S1/S2 Heart Sounds Pulmonary Exam: Clear Bilateral Breath Sounds Implantable Cardiac Device Does patient have a Pacemaker or an ICD?: No Airway Exam Known Difficult Airway: No Mouth Opening: Normal (> 3cm) Neck Range of Motion: Full ROM Neck Circumference: Normal NPO Status NPO Status: NPO Clears >2 hours, Solids >8 hours Anesthesia Plan Resuscitation Status: Full Code Anesthesia Technique: General Anesthesia Airway Planned: Natural Airway Monitors Used: Standard Monitors
--- NOTE | 2022-11-08 09:14 | BOWEL_PTH ---
PATIENT: Sara Morocho LOC: [facility] U#:[id number] AGE/SX: 62/F ROOM: RE11/08/[address]: Roberto Redd MD : 1960 BED: DIS: 11/08/2022 SPEC #: [id number] RECD: 11/08/22 12:53 STATUS: FELIX REQ #: [id number] RITU: 11/08/22 09:[address]: Roberto Redd DEPT: Surgical Specimen RECD BY: Aylin Mason ENTERED: 11/08/22 12:54 SP TYPE: Bowel OTHR DR: Jadiel Dick Tissues: 1 - BIOPSY BOWEL Procedures: GROSS AND MICRO LEVEL 4 Comments: [id number]
[2022-11-08 09:29] VITALS: BP 111/60; PULSE 69; RESP 16; TEMP 36.5; O2SAT 93
--- NOTE | 2022-11-08 09:37 | W.ANESPOSTOP ---
Postoperative Evaluation Date, Time and Location Date Performed: 11/08/22 Time Performed: 09:38 Patient Location: Day Surgery Unit Vital Signs Most Recent Imported Vital Signs: Most Recent Vital Signs Temp Pulse Resp BP Pulse Ox 36.2 C L 88 16 141/77 H 95 11/08/22 08:10 11/08/22 08:10 11/08/22 08:10 11/08/22 08:10 11/08/22 08:10 Most Recent Manually Entered Vital Signs: Adult Blood Pressure: 111/60 Heart Rate: 69 Respirations: 16 Oxygen Saturation (%): 93 Temperature (C): 36.5 C Pain Score (0-10 Scale): 0 Pain Score Most Recent Pain Score: Most Recent Pain Score Pain Level 3 11/08/22 08:10 Assessment Mental Status: Awake (Alert & Oriented to Patient Baseline) Airway and Respiratory Function: Patent airway with normal (patient baseline) respiratory exam Cardiovascular Function: Hemodynamically Stable Hydration Status: Adequately Hydrated Nausea & Vomiting: No Nausea or Vomiting Pain: Pt. Denies Any Pain Peripheral Nerve Block: Patient did not receive a nerve block
[2022-11-08 09:39] VITALS: BP 111/60; PULSE 69; RESP 16; TEMPC 36.5; O2SAT 93
[2022-11-08 10:00] VITALS: BP 142/62; PULSE 65; RESP 16; TEMP 36.5; O2SAT 95
== END 2022-11-08 10:40 | disposition home or self-care (01) ==
PROVIDERS: PCP Family Medicine; Visit Provider Surgery
PROC: 0DJD8ZZ Inspection of Lower Intestinal Tract, Via Natural or Artificial Opening Endoscopic (ICD-10-PCS; CPT 45378; principal; 2022-11-08 09:00)
DX: Z12.11 Encounter for screening for malignant neoplasm of colon (principal); K63.5 Polyp of colon; Z80.0 Family history of malignant neoplasm of digestive organs
CPT/HCPCS: 45380; 88305

== ENCOUNTER 2023-02-04 16:03 | Outpatient (REF) | payer OTHER, SELFPAY ==
[2023-02-04 21:04] LABS: Hemoglobin A1C 6.3 % (<5.7)
== END 2023-02-04 16:04 | disposition home or self-care (01) ==
LOC: NCHCN 16:03
PROVIDERS: PCP Family Medicine; Visit Provider Family Medicine
DX: R73.03 Prediabetes (principal)
CPT/HCPCS: 83036

== ENCOUNTER → 2023-10-23 02:32 | Outpatient (CLI) | payer OTHER, SELFPAY ==
--- NOTE | 2023-10-23 | DI.MAMMO_ITS ---
Exam(s) MAMMO SCREENING EXAM: MAMMO SCREENING CLINICAL HISTORY: Z12.31 Screening. TECHNIQUE: Bilateral full field digital CC and MLO mammographic images were obtained with 3D tomosyn thesis and utilizing computer aided detection (CAD). COMPARISON: Prior mammograms were reviewed. FINDINGS: There has been no significant change in the appearance and distribution of the fibroglandular tissue. There are no new spiculated masses nor malignant appearing microcalcification groups. There is no significant architectural distortion nor skin thickening-retraction. IMPRESSION: No radiographic evidence of malignancy. BI-RADS Category 1 - Negative Breast Density - Category B - Scattered areas of fibroglandular density Breast density Category C or D implies that the patient has dense breast tissue. Dense breast tissue can make it harder to find cancer on a mammogram. Dense breast tissue is also associated with an incr eased risk of breast cancer. This information about the result of the mammogram report was provided to the patient to raise their awareness. Use this report when you speak with the patient about their risks for breast cancer, which includes their family history. At that time, you may recommend additional screening tests (Ultrasoun d or MRI) as these tests may add significant information. A negative radiographic report should not delay biopsy if a dominant or clinically suspicious mass is present. Up to ten percent of cancers are not identified on mammography. A negative report may reinforce clinical impression. Adenosis and dense breasts may obscure an underlying neoplasm. False positive reports average 6 to 10%. Patient will receive a letter notifying them of these results.
== END ==
PROVIDERS: PCP Family Medicine; Visit Provider Family Medicine
DX: Z12.31 Encounter for screening mammogram for malignant neoplasm of breast (principal)
CPT/HCPCS: 77063; 77067

== ENCOUNTER 2024-05-29 13:51 | Outpatient (CLI) | payer OTHER, SELFPAY ==
[2024-05-29 14:06] LABS: Abs Immature Grans 0.02 10^3/uL (0.0-0.06); Absolute Basophil Count 0.04 10^3/uL (0.0-0.2); Absolute Lymphocyte Count 2.22 10^3/uL (1.2-3.4); Absolute Monocyte Count 0.76 10^3/uL (0.1-0.8); Absolute Neutrophil Count 4.97 10^3/uL (1.2-6.7); Basophils % 0.5 %; Eosinophils % 1.2 %; HCT 42.8 % (36.0-46.0); HGB 14.5 g/dL (11.2-15.7); Immature Grans % 0.2 %; Lymphocytes % 27.4 %; MCHC 33.9 % (32.0-36.0); MCV 98 fL (80-95); MPV 10.7 fL (8.0-11.0); Monocytes % 9.4 %; Neutrophils % 61.3 %; Platelet Count 269 10^3/uL (130-400); RBC 4.39 10^6/uL (3.93-5.22); RDW 12.4 % (11.7-14.6); RDW-SD 44.1 fL; WBC 8.11 10^3/uL (4.4-10.8)
[2024-05-29 14:21] LABS: ALT 39 U/L (14-59); AST 21 U/L (15-37); Albumin 4.1 g/dL (3.4-5.0); Alkaline Phosphatase 105 U/L (46-116); BUN 19 mg/dL (7-18); Bilirubin, Total 0.98 mg/dL (0.2-1.0); CREATININE 0.9 mg/dL (0.55-1.02); Calcium 9.4 mg/dL (8.5-10.1); Chloride 102 mmol/L (98-107); Estimated GFR 71.83 (mL/min/1.73m2); Glucose 83 mg/dL (74-106); Potassium 4.1 mmol/L (3.5-5.1); Sodium 141 mmol/L (136-145); Total Protein 8.4 g/dL (6.4-8.2)
== END 2024-05-29 13:52 | disposition home or self-care (01) ==
LOC: LBO 13:53
PROVIDERS: PCP Family Medicine; Visit Provider Nurse Practitioner Family
DX: Z79.899 Other long term (current) drug therapy (principal)
CPT/HCPCS: 36415; 80053; 85025

== ENCOUNTER 2025-01-15 00:27 | Outpatient (CLI) | payer OTHER, SELFPAY ==
[2025-01-15 10:38] LABS: Abs Immature Grans 0.01 10^3/uL (0.0-0.06); Absolute Basophil Count 0.04 10^3/uL (0.0-0.2); Absolute Eosinophil Count 0.13 10^3/uL (0.0-0.7); Absolute Lymphocyte Count 2.04 10^3/uL (1.2-3.4); Absolute Monocyte Count 0.49 10^3/uL (0.1-0.8); Absolute Neutrophil Count 3.78 10^3/uL (1.2-6.7); Basophils % 0.6 %; HCT 41.5 % (36.0-46.0); HGB 13.6 g/dL (11.2-15.7); Immature Grans % 0.2 %; Lymphocytes % 31.4 %; MCH 32.2 pg (27.0-33.0); MCHC 32.8 % (32.0-36.0); MCV 98 fL (80-95); MPV 9.9 fL (8.0-11.0); Monocytes % 7.6 %; Neutrophils % 58.2 %; Platelet Count 219 10^3/uL (130-400); RBC 4.23 10^6/uL (3.93-5.22); RDW 12.4 % (11.7-14.6); RDW-SD 44.9 fL; WBC 6.49 10^3/uL (4.4-10.8)
[2025-01-15 11:46] LABS: ALT 32 U/L (14-59); AST 19 U/L (15-37); Albumin 3.8 g/dL (3.4-5.0); Alkaline Phosphatase 105 U/L (46-116); Anion Gap 7.5 mmol/L (3-11); BUN 19 mg/dL (7-18); Bilirubin, Total 1.2 mg/dL (0.2-1.0); CO2 29.5 mmol/L (21.0-32.0); CREATININE 0.8 mg/dL (0.55-1.02); Calcium 9.3 mg/dL (8.5-10.1); Chloride 105 mmol/L (98-107); Estimated GFR 82.23 (mL/min/1.73m2); Glucose 147 mg/dL (74-106); Potassium 3.9 mmol/L (3.5-5.1); Sodium 142 mmol/L (136-145); Total Protein 7.7 g/dL (6.4-8.2)
== END 2025-01-15 00:28 | disposition home or self-care (01) ==
PROVIDERS: PCP Family Medicine; Visit Provider Nurse Practitioner Family
DX: Z79.899 Other long term (current) drug therapy (principal); L40.50 Arthropathic psoriasis, unspecified; L40.9 Psoriasis, unspecified
CPT/HCPCS: 36415; 80053; 85025

== ENCOUNTER 2025-03-05 15:56 | Outpatient (REF) | payer MEDICAID, SELFPAY | END 2025-03-05 15:57 | disposition home or self-care (01) | LOC: NCHCN 15:56 | PROVIDERS: PCP Family Medicine; Visit Provider Nurse Practitioner Family | DX: R39.9 Unspecified symptoms and signs involving the genitourinary system (principal) | CPT/HCPCS: 87086 ==

== ENCOUNTER 2025-05-03 12:52 | Outpatient (CLI) | payer MEDICAID, SELFPAY ==
[2025-05-03 12:45] LABS: Abs Immature Grans 0.01 10^3/uL (0.0-0.06); Absolute Basophil Count 0.05 10^3/uL (0.0-0.2); Absolute Eosinophil Count 0.12 10^3/uL (0.0-0.7); Absolute Lymphocyte Count 1.77 10^3/uL (1.2-3.4); Absolute Neutrophil Count 3.33 10^3/uL (1.2-6.7); Basophils % 0.9 %; Eosinophils % 2.1 %; HCT 41.2 % (36.0-46.0); HGB 13.9 g/dL (11.2-15.7); Immature Grans % 0.2 %; Lymphocytes % 30.6 %; MCH 32.7 pg (27.0-33.0); MCHC 33.7 % (32.0-36.0); MCV 97 fL (80-95); Monocytes % 8.7 %; Neutrophils % 57.5 %; Platelet Count 221 10^3/uL (130-400); RBC 4.25 10^6/uL (3.93-5.22); RDW 12.5 % (11.7-14.6); RDW-SD 44.5 fL; WBC 5.78 10^3/uL (4.4-10.8)
[2025-05-03 14:18] LABS: ALT 37 U/L (14-59); AST 21 U/L (15-37); Albumin 4.1 g/dL (3.4-5.0); Alkaline Phosphatase 94 U/L (46-116); Anion Gap 7.2 mmol/L (3-11); BUN 17 mg/dL (7-18); Bilirubin, Total 0.9 mg/dL (0.2-1.0); CO2 29.8 mmol/L (21.0-32.0); CREATININE 0.8 mg/dL (0.55-1.02); Calcium 9.1 mg/dL (8.5-10.1); Chloride 104 mmol/L (98-107); Estimated GFR 82.23 (mL/min/1.73m2); Glucose 116 mg/dL (74-106); Sodium 141 mmol/L (136-145); Total Protein 7.5 g/dL (6.4-8.2)
== END 2025-05-03 12:53 | disposition home or self-care (01) ==
LOC: LBO 12:52
PROVIDERS: PCP Family Medicine; Visit Provider Nurse Practitioner Family
DX: Z79.899 Other long term (current) drug therapy (principal); L40.50 Arthropathic psoriasis, unspecified; L40.9 Psoriasis, unspecified
CPT/HCPCS: 36415; 80053; 85025

== ENCOUNTER 2025-09-15 01:57 | Outpatient (CLI) | payer OTHER, SELFPAY ==
[2025-09-15 12:09] LABS: Abs Immature Grans 0.00 10^3/uL (0.0-0.06); HCT 41.8 % (36.0-46.0); HGB 14.1 g/dL (11.2-15.7); Immature Grans % 0.0 %; MCH 32.8 pg (27.0-33.0); MCHC 33.7 % (32.0-36.0); MCV 97 fL (80-95); MPV 10.0 fL (8.0-11.0); Platelet Count 251 10^3/uL (130-400); RBC 4.30 10^6/uL (3.93-5.22); RDW 12.0 % (11.7-14.6); RDW-SD 42.8 fL; WBC 5.77 10^3/uL (4.4-10.8)
[2025-09-15 12:31] LABS: ALT 32 U/L (10-49); AST 26 U/L (<34); Albumin 4.5 g/dL (3.4-5.0); Alkaline Phosphatase 91 U/L (46-116); Anion Gap 8.1 mmol/L (3-11); BUN 17 mg/dL (9-23); Bilirubin, Total 0.90 mg/dL (0.2-1.2); CO2 28.9 mmol/L (20.0-31.0); Calcium 9.3 mg/dL (8.3-10.6); Chloride 105 mmol/L (98-107); Glucose 104 mg/dL (74-106); Potassium 3.9 mmol/L (3.5-5.1); Sodium 142 mmol/L (136-145); Total Protein 7.6 g/dL (5.7-8.2)
== END 2025-09-15 01:58 | disposition home or self-care (01) ==
LOC: LBO 01:57
PROVIDERS: PCP Family Medicine; Visit Provider Nurse Practitioner Acute Care
DX: Z79.899 Other long term (current) drug therapy (principal)
CPT/HCPCS: 36415; 80053; 85025